=== PATIENT | female | born 1975 | race Hispanic/Latino ===

== ENCOUNTER 2017-09-29 22:00 | Emergency (ER) | payer OTHER ==
[2017-09-29 22:26] VITALS: BP 109/69; PULSE 78; RESP 16; O2SAT 99
--- NOTE | 2017-09-29 22:59 | ED PDOC ---
HPI: Skin/Bite Injury Time Seen by Provider: 09/29/17 22:28 Chief Complaint (Nursing): Abnormal Skin Integrity Chief Complaint (Provider): Insect Bite History Per: Patient History/Exam Limitations: no limitations Onset/Duration Of Symptoms: Days (since 09/27/17) Current Symptoms Are (Timing): Still Present Pain Scale Rating Of: 5 Additional Complaint(s): Patient is a 41 year old female who presents to ED for evaluation of an insect bite to the posterior left ankle. Patient notes she noticed the insect bite Thursday09/27/17 and has had increased swelling, itching, "burning" pain, and redness to the bite site. Patient reports she has been applying Cortizone cream with no relief of symptoms. No other complaints at present. PMD: Santos Hayes Tetanus: UTD LMP: 09/14/17 Past Medical History Reviewed: Historical Data, Nursing Documentation, Vital Signs Vital Signs: Last Vital Signs Temp Pulse 78 09/29/17 22:23 Resp 16 09/29/17 22:23 BP 109/69 09/29/17 22:23 Pulse Ox 99 09/29/17 23:07 - Medical History PMH: Hyperthyroidism - Surgical History Surgical History: Cholecystectomy, (x1) - Family History Family History: States: Unknown Family Hx - Living Arrangements Living Arrangements: With Family - Social History Current smoker - smoking cessation education provided: No Alcohol: Social Drugs: Denies - Immunization History Hx Tetanus Toxoid Vaccination: Yes (UTD) - Home Medications Home Medications: Ambulatory Orders Medication Instructions Recorded Cephalexin [Keflex] 500 mg PO TID #21 capsule 09/29/17 DiphenhydrAMINE [Benadryl] 25 mg PO Q6 PRN #30 cap 09/29/17 - Allergies Allergies/Adverse Reactions: Allergies Allergy/AdvReac Type Severity Reaction Status Date / Time No Known Allergies Allergy Verified 09/29/17 22:23 Review of Systems ROS Statement: Except As Marked, All Systems Reviewed And Found Negative Skin: Positive for: Other (insect bite to posterior left ankle) Physical Exam - Reviewed Nursing Documentation Reviewed: Yes Vital Signs Reviewed: Yes - Physical Exam Appears: Positive for: Well, Non-toxic, No Acute Distress Head Exam: Positive for: ATRAUMATIC, NORMOCEPHALIC Skin: Positive for: Normal Color, Warm, Dry. Negative for: Rash Eye Exam: Positive for: EOMI, PERRL ENT: Positive for: Other (Airway patent, (-) stridor. Mucus membranes moist. ) Neck: Positive for: Painless ROM, Supple Cardiovascular/Chest: Positive for: Regular Rate, Rhythm Respiratory: Positive for: Normal Breath Sounds. Negative for: Decreased Breath Sounds, Accessory Muscle Use, Respiratory Distress Pulses-Dorsalis Pedis (L): 2+ Pulses-Dorsalis Pedis (R): 2+ Pulses-Post. Tibialis (L): 2+ Pulses-Post. Tibialis (R): 2+ Extremity: Positive for: Normal ROM (of left foot, ankle,and knee), Tenderness ( to posterior left ankle (+) erythema measuring 4cm x 3cm with central insect bite with intact blister (+) localized swelling), Capillary Refill (intact). Negative for: Calf Tenderness Neurologic/Psych: Positive for: Alert, Oriented (x3), Gait (steady in ED) - ECG O2 Sat by Pulse Oximetry: 99 (RA) Pulse Ox Interpretation: Normal Medical Decision Making Medical Decision Making: Initial Impression: Insect Bite, Early Cellulitis Plan: -Keflex 500mg PO -Benadryl 50mg PO (not driving home) -Pepcid 40mg PO -Decadron 10mg IM -Re-evaluation -Area of erythema outlined with pen by Naveen SHULTZ. Patient advised to return to ED immediately if erythema exceeds margins. 2335 On re-evaluation, patient reports improvement of symptoms. On exam, patient remains AAOx3, in no acute distress. On exam, neck is supple, lungs CTA, cardiac RRR, neuro exam shows no focal findings. Gait steady in ED. VSS, stable for discharge. Diagnostic results d/w the patient in great detail. Dx of insect bite, cellulitis d/w the patient. Advised use of NSAIDs for pain/inflammation. Based on history, exam and diagnostic results plan will be for discharge and outpatient follow up with PMD in 1-2 days for wound check. Advised to follow up with primary care physician in 1-2 days without fail. Advised to take medication as prescribed. Return to the emergency room at any time for any new or worsening symptoms. Patient states she fully agrees with and understands discharge instructions. States that she agrees with the plan and disposition. Verbalized and repeated discharge instructions and plan. I have given the patient opportunity to ask any additional questions. Disposition - Clinical Impression Clinical Impression: Cellulitis of left ankle, Insect bite - Patient ED Disposition Is Patient to be Admitted: No Counseled Patient/Family Regarding: Studies Performed, Diagnosis, Need For Followup, Rx Given - Disposition Referrals: Santos Hayes MD [Family Provider] - Disposition: Routine/Home Disposition Time: 23:37 Condition: STABLE Additional Instructions: The emergency medical care you received today was directed at your acute symptoms. If you were prescribed any medication, please fill it and take as directed. It may take several days for your symptoms to resolve. Return to the Emergency Department if your symptoms worsen, do not improve, or if you have any other problems. Please contact your doctor in 2 days for re-evaluation and follow up / or call one of the physicians/clinics you have been referred to that are listed on the Patient Visit Information form that is included in your discharge packet. Bring any paperwork you were given at discharge with you along with any medications you are taking to your follow up visit. Our treatment cannot replace ongoing medical care by a primary care provider (PCP) outside of the emergency department. Prescriptions: Cephalexin [Keflex] 500 mg PO TID #21 capsule DiphenhydrAMINE [Benadryl] 25 mg PO Q6 PRN #30 cap PRN Reason: Allergy Symptoms Instructions: Cellulitis and Erysipelas (Skin Infections), Insect Bites and Stings (DC) Forms: [employer] (Kinyarwanda) Print Language: CHADIAN - POA Present On Arrival: None
[2017-09-29] MEDS ORDERED: Famotidine 40 MG/5 ML PO STA (23:02)
== END 2017-09-29 23:40 | disposition home or self-care (01) ==
LOC: H.ER 22:00
DX: L03.116 Cellulitis of left lower limb (principal); S90.562A Insect bite (nonvenomous), left ankle, initial encounter; E05.90 Thyrotoxicosis, unspecified without thyrotoxic crisis or storm; W57.XXXA Bitten or stung by nonvenomous insect and other nonvenomous arthropods, initial encounter
CPT/HCPCS: 96372; 99282; J1100